=== PATIENT | male | born 1960 | race Caucasian/White ===

== ENCOUNTER → 2017-08-04 | Outpatient (CLI) | payer OTHER ==
[~2017-08-04] MED LIST: GLUCOPHAGE XR750 MG PO; LANTUS SUBQ; LISINOPRIL20 MG PO; LOPRESSOR25 PO; METOPROLOL SUCC25 M1 PO; PRAVASTATIN SOD20 MG PO; PRINIVIL20 MG PO
[2017-08-04 09:41] LABS: ALBUMIN 3.6 g/dL (3.4-5.0); ALKALINE PHOSPHATASE 82 U/L (46-116); ANION GAP 10 mmol/L (7-16); BUN 26 mg/dL (7-18); CALCIUM 8.8 mg/dL (8.5-10.1); CHLORIDE 101 mmol/L (98-107); CHOLESTEROL 197 mg/dL (<200); CO2 26 mmol/L (21-32); CREATININE 0.9 mg/dL (0.6-1.3); GLUCOSE 194 mg/dL (70-99); HDL CHOLESTEROL 36 mg/dL (>40); POTASSIUM 4.8 mmol/L (3.5-5.1); SGOT 30 U/L (15-37); SGPT 53 U/L (30-65); SODIUM 137 mmol/L (136-145); TC:HDL 5.5 Ratio (Not establshd); TOTAL BILIRUBIN 0.5 mg/dL (<0.1-1.0); TOTAL PROTEIN 7.7 g/dL (6.4-8.2); TRIGLYCERIDE 593 mg/dL (<150); VLDL 119 mg/dL (<40)
[2017-08-04 09:42] LABS: LDL CHOLESTEROL ND mg/dL (<100); SERUM ASSESSMENT Clear
[2017-08-04 17:14] LABS: GLYCOHEMOGLOBIN (HGB A1C) 7.8 % (4.8-5.6)
== END ==
LOC: M.LAB 09:16
PROVIDERS: Nurse Practitioner
DX: E11.8 Type 2 diabetes mellitus with unspecified complications (principal); I10 Essential (primary) hypertension; E78.5 Hyperlipidemia, unspecified

== ENCOUNTER → 2018-01-11 | Outpatient (CLI) | payer OTHER ==
[2018-01-11 08:40] LABS: ALBUMIN 3.5 g/dL (3.4-5.0); ALKALINE PHOSPHATASE 87 U/L (46-116); ANION GAP 9 mmol/L (7-16); BUN 19 mg/dL (7-18); CALCIUM 8.6 mg/dL (8.5-10.1); CHLORIDE 100 mmol/L (98-107); CHOLESTEROL 185 mg/dL (<200); CO2 25 mmol/L (21-32); CREATININE 0.9 mg/dL (0.6-1.3); GLUCOSE 215 mg/dL (70-99); HDL CHOLESTEROL 33 mg/dL (>40); POTASSIUM 4.7 mmol/L (3.5-5.1); SGOT 22 U/L (15-37); SGPT 39 U/L (30-65); SODIUM 134 mmol/L (136-145); TC:HDL 5.6 Ratio (Not establshd); TOTAL BILIRUBIN 0.5 mg/dL (<0.1-1.0); TOTAL PROTEIN 7.7 g/dL (6.4-8.2); TRIGLYCERIDE 609 mg/dL (<150); VLDL 122 mg/dL (<40)
[2018-01-11 08:48] LABS: LDL CHOLESTEROL ND mg/dL (<100); SERUM ASSESSMENT Clear
[2018-01-12 03:13] LABS: GLYCOHEMOGLOBIN (HGB A1C) 7.9 % (4.8-5.6)
== END ==
LOC: M.LAB 08:00
PROVIDERS: Nurse Practitioner
DX: E11.9 Type 2 diabetes mellitus without complications (principal); E78.5 Hyperlipidemia, unspecified; E78.00 Pure hypercholesterolemia, unspecified

== ENCOUNTER → 2018-09-10 | Outpatient (CLI) | payer OTHER ==
[2018-09-10 10:32] LABS: ABSOLUTE BASOPHILS 0.1 thou/uL (0.0-0.2); ABSOLUTE EOSINOPHILS 0.1 thou/uL (0.0-0.7); ABSOLUTE LYMPHOCYTES 0.7 thou/uL (0.8-5.3); ABSOLUTE MONOCYTES 0.6 thou/uL (0.0-1.2); ABSOLUTE NEUTROPHILS 3.7 thou/uL (1.6-8.1); BASOPHILS 1.1 %; EOSINOPHILS 2.6 %; HEMATOCRIT 42.8 % (42.0-52.0); HEMOGLOBIN 14.6 gm/dL (14.0-18.0); LYMPHOCYTES 13.6 %; MCH 28.6 pg (26.0-34.0); MCHC 34.1 g/dL (28.0-37.0); MCV 83.9 fL (80.0-100.0); MONOCYTES 10.9 %; MPV 7.9 fl. (7.2-11.1); NUCLEATED RBCS 0 /100WBC; PLATELET COUNT* 252 thou/uL (150-400); POLYS 71.8 %; RDW-CV 13.5 % (10.5-14.5); WBC 5.1 thou/uL (4.0-11.0)
[2018-09-10 10:42] LABS: ALBUMIN 3.8 g/dL (3.4-5.0); ALKALINE PHOSPHATASE 94 U/L (46-116); ANION GAP 9 mmol/L (7-16); BUN 12 mg/dL (7-18); CALCIUM 8.8 mg/dL (8.5-10.1); CHLORIDE 101 mmol/L (98-107); CHOLESTEROL 197 mg/dL (<200); CO2 26 mmol/L (21-32); CREATININE 0.8 mg/dL (0.6-1.3); GLUCOSE 185 mg/dL (70-99); HDL CHOLESTEROL 38 mg/dL (>40); LDL CHOLESTEROL 96 mg/dL (<100); POTASSIUM 4.6 mmol/L (3.5-5.1); SGOT 30 U/L (15-37); SGPT 44 U/L (30-65); SODIUM 136 mmol/L (136-145); TC:HDL 5.2 Ratio (Not establshd); TOTAL BILIRUBIN 0.5 mg/dL (<0.1-1.0); TOTAL PROTEIN 8.1 g/dL (6.4-8.2); TRIGLYCERIDE 315 mg/dL (<150); VLDL 63 mg/dL (<40)
[2018-09-10 10:43] LABS: SERUM ASSESSMENT Clear
[2018-09-10 19:06] LABS: T3 UPTAKE 24 % (24-39)
[2018-09-11 02:09] LABS: GLYCOHEMOGLOBIN (HGB A1C) 8.4 % (4.8-5.6)
== END ==
LOC: M.LAB 10:02
PROVIDERS: Nurse Practitioner
DX: I25.10 Atherosclerotic heart disease of native coronary artery without angina pectoris (principal); E11.9 Type 2 diabetes mellitus without complications; E78.5 Hyperlipidemia, unspecified; I10 Essential (primary) hypertension; E66.9 Obesity, unspecified; J30.89 Other allergic rhinitis; B37.9 Candidiasis, unspecified; Z79.4 Long term (current) use of insulin; Z68.39 Body mass index [BMI] 39.0-39.9, adult

== ENCOUNTER → 2019-11-01 | Outpatient (CLI) | payer OTHER ==
[2019-11-01 10:01] LABS: ABSOLUTE BASOPHILS 0.1 thou/uL (0.0-0.2); ABSOLUTE EOSINOPHILS 0.2 thou/uL (0.0-0.7); ABSOLUTE LYMPHOCYTES 0.9 thou/uL (0.8-5.3); ABSOLUTE MONOCYTES 0.5 thou/uL (0.0-1.2); ABSOLUTE NEUTROPHILS 3.4 thou/uL (1.6-8.1); BASOPHILS 1.2 %; EOSINOPHILS 3.7 %; HEMATOCRIT 41.4 % (42.0-52.0); HEMOGLOBIN 14.4 gm/dL (14.0-18.0); LYMPHOCYTES 17.2 %; MCH 29.6 pg (26.0-34.0); MCHC 34.7 g/dL (28.0-37.0); MCV 85.3 fL (80.0-100.0); MONOCYTES 10.1 %; MPV 7.8 fl. (7.2-11.1); NUCLEATED RBCS 0 /100WBC; PLATELET COUNT* 202 thou/uL (150-400); POLYS 67.8 %; RBC 4.86 mil/uL (4.50-6.00); RDW-CV 13.4 % (10.5-14.5)
[2019-11-01 10:18] LABS: ALBUMIN 3.5 g/dL (3.4-5.0); ALKALINE PHOSPHATASE 94 U/L (46-116); ANION GAP 9 mmol/L (7-16); BUN 12 mg/dL (7-18); CALCIUM 8.9 mg/dL (8.5-10.1); CHLORIDE 98 mmol/L (98-107); CHOLESTEROL 167 mg/dL (<200); CO2 26 mmol/L (21-32); CREATININE 0.9 mg/dL (0.6-1.3); DIRECT BILIRUBIN 0.1 mg/dL (<0.1-0.3); GLUCOSE 266 mg/dL (70-99); HDL CHOLESTEROL 30 mg/dL (>40); POTASSIUM 4.5 mmol/L (3.5-5.1); SERUM ASSESSMENT Clear; SGOT 28 U/L (15-37); SGPT 46 U/L (30-65); SODIUM 133 mmol/L (136-145); TC:HDL 5.6 Ratio (Not establshd); TOTAL BILIRUBIN 0.7 mg/dL (<0.1-1.0); TOTAL PROTEIN 7.4 g/dL (6.4-8.2); TRIGLYCERIDE 538 mg/dL (<150); VLDL 108 mg/dL (<40)
[2019-11-02 02:06] LABS: GLYCOHEMOGLOBIN (HGB A1C) 10.5 % (4.8-5.6)
[2019-11-02 18:06] LABS: FREE PSA 0.03 ng/mL
== END ==
LOC: M.MRI 09:16
PROVIDERS: ATTEND Registered Nurse Diabetes Educator
DX: Z12.5 Encounter for screening for malignant neoplasm of prostate (principal); S46.111A Strain of muscle, fascia and tendon of long head of biceps, right arm, initial encounter; M75.121 Complete rotator cuff tear or rupture of right shoulder, not specified as traumatic; E78.5 Hyperlipidemia, unspecified; M25.511 Pain in right shoulder; E11.9 Type 2 diabetes mellitus without complications; I10 Essential (primary) hypertension; I65.23 Occlusion and stenosis of bilateral carotid arteries; X58.XXXA Exposure to other specified factors, initial encounter; Y93.89 Activity, other specified; Y92.89 Other specified places as the place of occurrence of the external cause; Y99.8 Other external cause status; Z79.899 Other long term (current) drug therapy; Z68.41 Body mass index [BMI] 40.0-44.9, adult; Z79.4 Long term (current) use of insulin

== ENCOUNTER → 2019-12-25 | Outpatient (CLI) | payer OTHER | LOC: M.LAB 08:59 | PROVIDERS: ATTEND Orthopaedic Surgery | DX: Z01.812 Encounter for preprocedural laboratory examination (principal); Z20.828 Contact with and (suspected) exposure to other viral communicable diseases ==

== ENCOUNTER → 2020-04-07 | Outpatient (CLI) | payer OTHER ==
[2020-04-07 10:09] LABS: ABSOLUTE BASOPHILS 0.1 thou/uL (0.0-0.2); ABSOLUTE EOSINOPHILS 0.2 thou/uL (0.0-0.7); ABSOLUTE MONOCYTES 0.5 thou/uL (0.0-1.2); HEMOGLOBIN 14.6 gm/dL (14.0-18.0); NUCLEATED RBCS 0 /100WBC; WBC 5.7 thou/uL (4.0-11.0)
[2020-04-07 10:20] LABS: ABSOLUTE LYMPHOCYTES 0.9 thou/uL (0.8-5.3); BASOPHILS 1.1 %; EOSINOPHILS 3.4 %; HEMATOCRIT 42.7 % (42.0-52.0); LYMPHOCYTES 15.9 %; MCHC 34.3 g/dL (28.0-37.0); MCV 84.5 fL (80.0-100.0); MONOCYTES 9.1 %; PLATELET COUNT* 208 thou/uL (150-400); POLYS 70.5 %; RBC 5.05 mil/uL (4.50-6.00)
[2020-04-07 10:33] LABS: ALBUMIN 3.7 g/dL (3.4-5.0); ALKALINE PHOSPHATASE 91 U/L (46-116); ANION GAP 8 mmol/L (7-16); BUN 15 mg/dL (7-18); CALCIUM 8.5 mg/dL (8.5-10.1); CHLORIDE 98 mmol/L (98-107); CO2 27 mmol/L (21-32); CREATININE 0.8 mg/dL (0.6-1.3); DIRECT BILIRUBIN 0.1 mg/dL (<0.1-0.3); GLUCOSE 268 mg/dL (70-99); POTASSIUM 4.5 mmol/L (3.5-5.1); SGOT 22 U/L (15-37); SGPT 37 U/L (30-65); SODIUM 133 mmol/L (136-145); TOTAL BILIRUBIN 0.6 mg/dL (<0.1-1.0); TOTAL PROTEIN 7.7 g/dL (6.4-8.2)
[2020-04-07 10:49] LABS: CHOLESTEROL 153 mg/dL (<200); HDL CHOLESTEROL 33 mg/dL (>40); LDL CHOLESTEROL 43 mg/dL (<100); TC:HDL 4.6 Ratio (Not establshd); TRIGLYCERIDE 386 mg/dL (<150); VLDL 77 mg/dL (<40)
[2020-04-07 10:51] LABS: SERUM ASSESSMENT Clear
== END ==
LOC: M.LAB 09:14
PROVIDERS: ATTEND Registered Nurse Diabetes Educator
DX: E78.5 Hyperlipidemia, unspecified (principal); E11.9 Type 2 diabetes mellitus without complications; E55.9 Vitamin D deficiency, unspecified; I10 Essential (primary) hypertension; Z79.4 Long term (current) use of insulin; Z68.41 Body mass index [BMI] 40.0-44.9, adult; Z79.899 Other long term (current) drug therapy

== ENCOUNTER 2020-06-09 16:33 | Emergency (ER) | payer OTHER ==
[~2020-06-09] VITALS: Ht 172.7 cm; Wt 122.5 kg
[2020-06-09] MEDS ORDERED: LIPITOR10 MG PO (16:44)
[2020-06-09 16:56] LABS: ABSOLUTE EOSINOPHILS 0.2 thou/uL (0.0-0.7); ABSOLUTE MONOCYTES 0.5 thou/uL (0.0-1.2); BASOPHILS 0.7 %; HEMATOCRIT 40.3 % (42.0-52.0); HEMOGLOBIN 13.9 gm/dL (14.0-18.0); LYMPHOCYTES 17.3 %; MCH 28.9 pg (26.0-34.0); MCHC 34.6 g/dL (28.0-37.0); MCV 83.6 fL (80.0-100.0); MONOCYTES 8.4 %; MPV 7.8 fl. (7.2-11.1); NUCLEATED RBCS 0 /100WBC; PLATELET COUNT* 219 thou/uL (150-400); POLYS 70.6 %; RBC 4.82 mil/uL (4.50-6.00); RDW-CV 13.3 % (10.5-14.5); WBC 5.7 thou/uL (4.0-11.0)
[2020-06-09 17:06] LABS: CALCIUM 8.8 mg/dL (8.5-10.1); CREATININE 0.9 mg/dL (0.6-1.3); POTASSIUM 4.5 mmol/L (3.5-5.1)
[2020-06-09 17:07] LABS: APTT 23.2 Seconds (25.0-31.3); PROTIME 10.2 Seconds (9.20-11.50)
[2020-06-09 17:20] LABS: ALBUMIN 3.6 g/dL (3.4-5.0); CK-MB MASS 0.8 ng/mL (<0.5-3.6); MAGNESIUM 1.9 mg/dL (1.8-2.4); TOTAL BILIRUBIN 0.4 mg/dL (<0.1-1.0); TOTAL PROTEIN 7.3 g/dL (6.4-8.2)
[2020-06-09 19:35] VITALS: BP 154/82
--- NOTE | 2020-06-10 10:33 | EKG ---
[place] [address] ELECTROCARDIOGRAM REPORT Name: SEAMUS MENDOZA Room: [facility]#: [id number] Admission: 06/09/20 Attend Phys: Discharge: 06/09/20 Date of : 60 Date of Service: 06/09/20 1637 Report #: [id number] THIS REPORT FOR: //name// [facility] ED Test Date: 2020-06-09 Test Time: 16:37:28 Pat Name: SEAMUS MENDOZA Department: Room: Gender: Insurance Attorney: CCD : 1960 Requested By: Vijay Horton Order Number: [id number] MD: Gus Laboy Measurements Intervals [place] Rate: 85 P: 23 TX: 160 QRS: 17 QRSD: 83 T: 18 QT: 353 QTc: 420 Interpretive Statements Sinus rhythm Baseline wander in lead(s) V4 Compared to ECG 05/10/2016 13:21:13 No significant changes Electronically Signed On 06-10-2020 10:33:19 INVESTIGATIVE WRITER by Gus Laboy [email or web address] <ELECTRONICALLY SIGNED> By: Gus Laboy MD, [facility] 06/10/20 1033 1637 1637 Gus Laboy MD, [facility] /EPI
== END 2020-06-09 19:35 | disposition home or self-care (01) ==
LOC: M.ERS 16:33
PROVIDERS: Family Medicine
DX: R07.89 Other chest pain (principal); E78.00 Pure hypercholesterolemia, unspecified; E11.9 Type 2 diabetes mellitus without complications

== ENCOUNTER → 2020-08-11 | Outpatient (CLI) | payer OTHER ==
[~2020-08-11] MED LIST changes: +LIPITOR10 MG PO
--- NOTE | 2020-08-28 13:00 | SLEEP ---
[address] [address] SLEEP STUDY REPORT Name: SEAMUS MENDOZA Room: [facility]#: [id number] Admission: 08/11/20 Attend Phys: JAZMÍN Santana Discharge: Date of : 60 Report #: [id number] THIS REPORT FOR: cc: Vesna Ochoa Tammy RNP Pervez, Adeel MD ~ DOC #: [id number] Jordan Thapa MD DATE OF STUDY: 08/11/2020 HOME SLEEP STUDY Home sleep study performed on 08/11/2020. SLEEP ARCHITECTURE: Total duration of the study is 520 minutes. During this time duration, we recorded multiple sleep related respiratory events. These included 23 obstructive apneas, 1 central apnea, in addition to 52 hypopneas. Overall apnea-hypopnea index was 8.9. Body position data indicates the patient was observed in the supine position for 317 minutes, the rest of the time the patient was in other positions. There are several desaturations recorded. O2 saturation is less than 90% for 5.6 minutes during the sleep study and less than 88% for 1.6 minutes during the sleep study. Mean heart rate was 82. IMPRESSION: Mild obstructive sleep apnea with an apnea-hypopnea index of 8.9 with mild nocturnal hypoxemia as described above. There is no obvious positional variation. RECOMMENDATIONS: Options include either proceeding to an in-lab sleep study for positive airway pressure titration or initially placing the patient on a CPAP auto titrated device. Clinical correlation is advised. In some selected the patients, use of a mandibular advancement device can also be a consideration, but is likely to be less effective. Clinical correlation is advised regarding considering weight loss. Recommend avoiding driving or other activities requiring vigilance if drowsy. His entire sleep study was reviewed by a board certified sleep physician. MD KIERAN Belle/[place] [address] SLEEP STUDY REPORT Name: SEAMUS MENDOZA Room: [facility]#: [id number] Admission: 08/11/20 Attend Phys: JAZMÍN Santana Discharge: Date of : 60 Report #: [id number] <ELECTRONICALLY SIGNED> By: Jordan Thapa MD 08/28/20 1300 1858 1922Asha Thapa MD /nt
== END ==
LOC: M.PUL 11:00
PROVIDERS: ATTEND Registered Nurse Diabetes Educator
DX: G47.33 Obstructive sleep apnea (adult) (pediatric) (principal); E11.9 Type 2 diabetes mellitus without complications; I10 Essential (primary) hypertension; Z79.4 Long term (current) use of insulin; Z68.41 Body mass index [BMI] 40.0-44.9, adult

== ENCOUNTER → 2020-09-22 | Outpatient (CLI) | payer OTHER ==
[2020-09-22 10:05] LABS: ABSOLUTE EOSINOPHILS 0.1 thou/uL (0.0-0.7); ABSOLUTE LYMPHOCYTES 0.8 thou/uL (0.8-5.3); ABSOLUTE MONOCYTES 0.5 thou/uL (0.0-1.2); ABSOLUTE NEUTROPHILS 3.4 thou/uL (1.6-8.1); EOSINOPHILS 2.8 %; HEMATOCRIT 40.8 % (42.0-52.0); HEMOGLOBIN 13.7 gm/dL (14.0-18.0); LYMPHOCYTES 16.2 %; MCHC 33.5 g/dL (28.0-37.0); MCV 83.6 fL (80.0-100.0); MONOCYTES 9.9 %; MPV 7.6 fl. (7.2-11.1); NUCLEATED RBCS 0 /100WBC; PLATELET COUNT* 209 thou/uL (150-400); POLYS 70.1 %; RBC 4.88 mil/uL (4.50-6.00); RDW-CV 13.2 % (10.5-14.5); WBC 4.8 thou/uL (4.0-11.0)
[2020-09-22 10:20] LABS: ALBUMIN 3.6 g/dL (3.4-5.0); ALKALINE PHOSPHATASE 105 U/L (46-116); ANION GAP 7 mmol/L (7-16); BUN 15 mg/dL (7-18); CALCIUM 9.1 mg/dL (8.5-10.1); CHLORIDE 101 mmol/L (98-107); CHOLESTEROL 154 mg/dL (<200); CO2 27 mmol/L (21-32); CREATININE 0.8 mg/dL (0.6-1.3); DIRECT BILIRUBIN 0.1 mg/dL (<0.1-0.3); GLUCOSE 176 mg/dL (70-99); HDL CHOLESTEROL 41 mg/dL (>40); LDL CHOLESTEROL 79 mg/dL (<100); POTASSIUM 4.6 mmol/L (3.5-5.1); SGOT 26 U/L (15-37); SGPT 36 U/L (30-65); SODIUM 135 mmol/L (136-145); TC:HDL 3.8 Ratio (Not establshd); TOTAL BILIRUBIN 0.6 mg/dL (<0.1-1.0); TOTAL PROTEIN 7.9 g/dL (6.4-8.2); TRIGLYCERIDE 171 mg/dL (<150); VLDL 34 mg/dL (<40)
[2020-09-22 10:21] LABS: SERUM ASSESSMENT Clear
[2020-09-23 02:06] LABS: GLYCOHEMOGLOBIN (HGB A1C) 9.6 % (4.8-5.6)
== END ==
LOC: M.ULTRA 09-18 10:30
PROVIDERS: ATTEND Registered Nurse Diabetes Educator
DX: R16.1 Splenomegaly, not elsewhere classified (principal); I10 Essential (primary) hypertension; E11.9 Type 2 diabetes mellitus without complications; E78.5 Hyperlipidemia, unspecified; E55.9 Vitamin D deficiency, unspecified; Z79.899 Other long term (current) drug therapy; Z79.4 Long term (current) use of insulin

== ENCOUNTER → 2020-11-12 | Outpatient (CLI) | payer OTHER ==
[2020-11-12 09:51] LABS: ABSOLUTE EOSINOPHILS 0.2 thou/uL (0.0-0.7); ABSOLUTE LYMPHOCYTES 0.7 thou/uL (0.8-5.3); ABSOLUTE MONOCYTES 0.6 thou/uL (0.0-1.2); ABSOLUTE NEUTROPHILS 4.8 thou/uL (1.6-8.1); BASOPHILS 0.7 %; HEMATOCRIT 44.1 % (42.0-52.0); HEMOGLOBIN 15.4 gm/dL (14.0-18.0); LYMPHOCYTES 11.4 %; MCH 28.8 pg (26.0-34.0); MCHC 34.9 g/dL (28.0-37.0); MCV 82.6 fL (80.0-100.0); MONOCYTES 9.2 %; MPV 7.7 fl. (7.2-11.1); NUCLEATED RBCS 0 /100WBC; PLATELET COUNT* 264 thou/uL (150-400); POLYS 75.7 %; RBC 5.34 mil/uL (4.50-6.00); RDW-CV 13.5 % (10.5-14.5); WBC 6.3 thou/uL (4.0-11.0)
[2020-11-12 09:58] LABS: CALCIUM 9.2 mg/dL (8.5-10.1); POTASSIUM 4.3 mmol/L (3.5-5.1)
[2020-11-13 02:07] LABS: GLYCOHEMOGLOBIN (HGB A1C) 9.1 % (4.8-5.6)
[2020-11-13 14:08] LABS: FREE PSA 0.06 ng/mL
== END ==
LOC: M.LAB 09:27
PROVIDERS: ATTEND Registered Nurse Diabetes Educator
DX: E11.9 Type 2 diabetes mellitus without complications (principal); Z12.5 Encounter for screening for malignant neoplasm of prostate; Z79.899 Other long term (current) drug therapy; Z79.4 Long term (current) use of insulin

== ENCOUNTER → 2020-11-24 | Outpatient (CLI) | payer OTHER ==
[2020-11-24 12:38] LABS: ABSOLUTE EOSINOPHILS 0.1 thou/uL (0.0-0.7); ABSOLUTE LYMPHOCYTES 0.6 thou/uL (0.8-5.3); ABSOLUTE MONOCYTES 0.2 thou/uL (0.0-1.2); ABSOLUTE NEUTROPHILS 2.3 thou/uL (1.6-8.1); EOSINOPHILS 3.2 %; HEMATOCRIT 37.8 % (42.0-52.0); HEMOGLOBIN 13.3 gm/dL (14.0-18.0); LYMPHOCYTES 17.8 %; MCHC 35.1 g/dL (28.0-37.0); MCV 82.5 fL (80.0-100.0); MONOCYTES 7.3 %; MPV 7.6 fl. (7.2-11.1); NUCLEATED RBCS 0 /100WBC; PLATELET COUNT* 194 thou/uL (150-400); POLYS 70.7 %; RBC 4.58 mil/uL (4.50-6.00); RDW-CV 13.4 % (10.5-14.5); WBC 3.3 thou/uL (4.0-11.0)
[2020-11-24 12:46] LABS: ALBUMIN 3.3 g/dL (3.4-5.0); CALCIUM 8.1 mg/dL (8.5-10.1); CREATININE 0.7 mg/dL (0.6-1.3); TOTAL BILIRUBIN 0.4 mg/dL (<0.1-1.0); TOTAL PROTEIN 7.6 g/dL (6.4-8.2)
[2020-11-24 13:25] LABS: % SATURATION 10 % (20-39); IRON 36 ug/dL (50-175)
[2020-11-24 14:27] LABS: ESR (SEDRATE) 31 mm/hr (0-20)
== END ==
LOC: M.LAB 12:04
PROVIDERS: ATTEND Internal Medicine Gastroenterology
DX: D64.9 Anemia, unspecified (principal)

== ENCOUNTER → 2021-01-04 | Outpatient (CLI) | payer OTHER | LOC: M.NUC 12-31 07:45 | PROVIDERS: ATTEND Internal Medicine Gastroenterology | DX: R10.9 Unspecified abdominal pain (principal) ==